=== PATIENT | male | born 1990 | race Caucasian/White ===

== ENCOUNTER → 2018-11-29 | Outpatient (CLI) | payer OTHER ==
--- NOTE | 2018-11-29 16:44 | DIREP ---
PROCEDURE:XRAY HAND MIN 3 VW-LT COMPARISON:None. INDICATIONS:M79.642 PAIN IN LEFT HAND. smashed distal 4th digit finger FINDINGS: BONES:No visible fracture. JOINTS:No dislocation. OTHER:Soft tissue swelling/changes. CONCLUSION: 1. Soft tissue trauma to the 4th digit. No evidence of acute fracture. Dictated by: Juan Luis Perdomo M.D. on 11/29/2018 at 04:28 PM
== END | disposition home or self-care (01) ==
LOC: RAD 15:55
PROVIDERS: ATTEND Nurse Practitioner Family
DX: S69.82XA Other specified injuries of left wrist, hand and finger(s), initial encounter (principal); Z68.28 Body mass index [BMI] 28.0-28.9, adult; X58.XXXA Exposure to other specified factors, initial encounter; Y93.89 Activity, other specified; Y93.9 Activity, unspecified; Y92.89 Other specified places as the place of occurrence of the external cause
CPT/HCPCS: 73130-LT

== ENCOUNTER 2019-10-27 15:51 | Emergency (ER) | payer OTHER ==
[~2019-10-27] VITALS: Ht 170.2 cm; Wt 74.8 kg
--- NOTE | 2019-10-27 17:36 | DIREP ---
PROCEDURE:XRAY WRIST MIN 3VW-RT COMPARISON:None. INDICATIONS:right arm injury FINDINGS: BONES:There is remodeling of the neck of the 5th metacarpal of the right hand without acute fracture. The findings could represent an old fracture of the neck/shaft of the 5th metacarpal. The fingers are in a state of flexion. No erosive arthritis is seen in the metacarpophalangeal joints. JOINTS:Normal. SOFT TISSUES:Normal. OTHER:No additional findings. CONCLUSION:Suspect a remote fracture of the neck/shaft of the right 5th metacarpal. No acute fracture is seen. Dictated by: Jon Morel MD on 10/27/2019 at 05:34 PM
--- NOTE | 2019-10-27 17:36 | DIREP ---
PROCEDURE:XRAY FOREARM 2 VWS-RT COMPARISON:None. INDICATIONS:right arm injury FINDINGS: BONES:Vascular groove identified on the AP view involving the ulnar cortex of the radius. No acute fracture is seen. No cortical destruction or periosteal reaction is seen. JOINTS:Normal. SOFT TISSUES:Normal. OTHER:No additional findings. CONCLUSION:No acute fracture seen in the two views of the right forearm. Dictated by: Jon Morel MD on 10/27/2019 at 05:34 PM
--- NOTE | 2019-10-27 18:23 | ER.PDOC ---
General Chief Complaint: Extremities Stated Complaint: R ARM INJURY Time seen by MD: 17:00 Source: patient, other History of Present Illness Occurred: just prior to arrival Where: work Severity: moderate Modifying Factors: pain on movement Past Medical History Medical History: no pertinent history Social History Alcohol Use: none Review of Systems Respiratory: no symptoms reported Cardiovascular: no symptoms reported Gastrointestinal: no symptoms reported Musculoskeletal: muscle pain, other All Other Systems: Reviewed and Negative Physical Exam Hand: nml inspection Wrist: limited ROM due to pain Forearm/Elbow: tenderness, swelling, limited ROM by pain Arm/Shoulder: nml inspection Skin: warm/dry Head/ENT: nml inspection Neck/Back: nml inspection Respiratory: chest non-tender CVS: heart sounds normal Results/Orders Results/Orders Orders - TERESSA CLAY NP Xr Forearm Rt (10/27/19 17:14) Xr Wrist Rt (10/27/19 17:14) Vital Signs Date Time Temp Pulse Resp B/P (MAP) Pulse Ox O2 Delivery O2 Flow Rate FiO2 10/27/19 18:26 99.0 90 18 116/58 (77) 10/27/19 16:12 99.4 67 18 98 EKG/XRAY/CT/US XRAY: forearm Ultrasound: normal Departure Time of Disposition: 18:22 Disposition: 01 HOME, SELF-CARE Impression: Primary Impression: Upper extremity injury Condition: Stable Patient Instructions: RICE - Routine Care for Injuries, [id number], RICE - Routine Care for Injuries Additional Instructions: RICE, Return is symptoms worsen, See PCP as needed Duration or Time Spent with Pa: 20 minutes Return to Work/School Can a patient return to work?: Yes Can a patient return to school: Yes TERESSA CLAY NP Oct 27, 2019 18:22
[2019-10-27 18:26] VITALS: BP 116/58
== END 2019-10-27 18:28 | disposition home or self-care (01) ==
LOC: ER 15:51
DX: S59.911A Unspecified injury of right forearm, initial encounter (principal); X58.XXXA Exposure to other specified factors, initial encounter; Y93.89 Activity, other specified; Y92.69 Other specified industrial and construction area as the place of occurrence of the external cause; Y99.0 Civilian activity done for income or pay
CPT/HCPCS: 99284; 73090-RT; 73110-RT